=== PATIENT | female | born 1995 | race Caucasian/White ===

== ENCOUNTER 2016-11-18 00:16 | Inpatient (IN) | payer OTHER ==
[2016-11-18] MEDS ORDERED: BRETHINE IVP PRN (01:16)
[2016-11-18] MEDS ORDERED: STADOL IV PRN (01:16)
[2016-11-18] MEDS ORDERED: ZOFRAN IV PRN ×2 (01:16→18:01)
[2016-11-18] MEDS ORDERED: NARCAN 0.4 MG/1 ML IV PRN (01:16)
[2016-11-18] MEDS ORDERED: MINERAL OIL PO PRN (01:16)
[2016-11-18] MEDS ORDERED: SUBLIMAZE IV PRN (01:16)
[2016-11-18] MEDS ORDERED: BRETHINE SUB-Q PRN (01:16)
[2016-11-18] MEDS ORDERED: ePHEDrine SULFATE IV PRN ×2 (01:16→04:38)
[2016-11-18] MEDS ORDERED: XYLOCAINE 2% INFILTRATI ONE (01:16)
[2016-11-18] MEDS ORDERED: PITOCin/NS 20 UNIT/1000ML DRIP 1,000 ML IV SCH ×2 (02:00→18:01)
[2016-11-18] MEDS ORDERED: PITOCin/NS 30 UNIT/500ML 500 ML IV SCH (02:00)
[2016-11-18] MEDS ORDERED: LACTATED RINGERS 1,000 ML ONE (02:00)
[2016-11-18 02:14] LABS: Hematocrit 34.2 % (30.3-42.9); Hemoglobin 11.3 gm/dl (10.1-14.3); Mean Corpuscular HGB Conc 33 % (30-34); Mean Corpuscular Volume 78 fl (79-97); Platelet Count 215 K/mm3 (140-440); Red Blood Count 4.41 M/mm3 (3.65-5.03); Red Cell Distribution Width 16.6 % (13.2-15.2); White Blood Count 12.9 K/mm3 (4.5-11.0)
[2016-11-18 02:19] LABS: Mean Corpuscular Hemoglobin 26 pg (28-32)
[2016-11-18] MEDS: LACTATED RINGERS 1,000 ML IV SCH ×2 (02:19→05:54)
[2016-11-18] MEDS ORDERED: ePHEDrine SULFATE ONE (03:09)
--- NOTE | 2016-11-18 03:18 | History and Physical Report ---
History of Present Illness Date of examination: 11/18/16 Date of admission: 11/18/16 01:10 Past History Past Medical History: no pertinent history, other (hx of depression) Past Surgical History: no surgical history Family/Genetic History: hypertension - Obstetrical History Expected Date of Delivery: 11/22/16 Actual Gestation: 39 Week(s) 3 Day(s) : 1 Spontaneous Abortions: 0 Medications and Allergies Allergies Allergy/AdvReac Type Severity Reaction Status Date / Time No Known Allergies Allergy Verified 11/18/16 00:25 Home Medications Medication Instructions Recorded Confirmed Last Taken Type No Known Home Medications [No 11/18/16 11/18/16 Unknown History Reported Home Medications] Active Meds: Active Medications Butorphanol Tartrate (Stadol) 2 mg IV Q2H PRN PRN Reason: Pain , Severe (7-10) Fentanyl (Sublimaze) 100 mcg IV Q2H PRN PRN Reason: Labor Pain Lactated Ringer's (Lactated Ringers) 1,000 mls @ 125 mls/hr IV DIRECT ANTONIO Last Admin: 11/18/16 02:19 Dose: 125 mls/hr Oxytocin/Sodium Chloride (Pitocin/Ns 20 Unit/1000ml Drip) 1,000 mls @ 125 mls/ hr IV DIRECT ANTONIO Oxytocin/Sodium Chloride (Pitocin/Ns 30 Unit/500ml) 500 mls @ 2 mls/hr IV TITR ANTONIO PRN Reason: Protocol Last Admin: 11/18/16 02:40 Dose: 2 mls/hr Mineral Oil (Mineral Oil) 30 ml PO QHS PRN PRN Reason: Constipation Naloxone HCl (Narcan 0.4 Mg/1 Ml) 0.1 mg IV Q2MIN PRN PRN Reason: Res Rate </= 8 or 02 SAT < 92% Ondansetron HCl (Zofran) 4 mg IV Q8H PRN PRN Reason: Nausea And Vomiting Review of Systems All systems: negative Gastrointestinal: abdominal pain - Vital Signs Vital signs: Vital Signs Temp Pulse Resp BP Pulse Ox 98.4 F 78 18 117/75 99 11/18/16 00:34 11/18/16 00:34 11/18/16 00:34 11/18/16 00:34 11/18/16 00:34 Temp Pulse Resp BP Pulse Ox 98.9 F 85 18 118/68 98 11/18/16 02:04 11/18/16 02:44 11/18/16 02:04 11/18/16 02:44 11/18/16 01:24 - Physical Exam Breasts: Positive: deferred Cardiovascular: Regular rate, Normal S1, Normal S2 Abdomen: Positive: normal appearance, soft, normal bowel sounds. Negative: distention, tenderness Vulva: both: normal Vagina: Positive: normal moisture. Negative: discharge Cervix: Negative: lesion, discharge Uterus: Positive: normal size, normal contour Adnexa: both: normal Anus/Rectum: Positive: normal perianal skin, heme negative. Negative: rectal mass, hemorrhoids Extremities: Deep Tendon Reflex Grade: Normal +2 - Obstetrical FHR: category 1 Uterine Contraction Monitor Mode: External Cervical Dilatation: 3.5 Cervical Effacement Percentage: 100 station: -1 Uterine Contraction Pattern: Irregular Uterine Tone Measurement Phase: Resting Uterine Contraction Intensity: Mild Results Result Diagrams: 11/18/16 01:50 Abnormal lab results 11/18/16 Range/Units 01:50 WBC 12.9 H (4.5-11.0) K/mm3 MCV 78 L (79-97) fl MCH 26 L (28-32) pg RDW 16.6 H (13.2-15.2) % All other labs normal. Assessment and Plan iup at term, active labor plan-anticipate
--- NOTE | 2016-11-18 04:38 | Anesthesia Consultation ---
Anesthesia Consult and Med Hx Date of service: 11/18/16 - Airway Anesthetic Teeth Evaluation: Good ROM Head & Neck: Adequate Mental/Hyoid Distance: Adequate Mallampati Class: Class II - Pulmonary Exam CTA: Yes - Cardiac Exam Cardiac Exam: RRR - Pre-Operative Health Status ASA Pre-Surgery Classification: ASA2, Emergency Proposed Anesthetic Plan: Epidural, Spinal - Pulmonary Hx Asthma: No COPD: No Hx Pneumonia: No - Cardiovascular System Hx Hypertension: No - Central Nervous System Hx Seizures: No Hx Psychiatric Problems: Yes (DEPRESSION YRS AGO) - Endocrine Hx Renal Disease: No Hx End Stage Renal Disease: No Hx Hypothyroidism: No Hx Hyperthyroidism: No - Hematic Hx Anemia: No Hx Sickle Cell Disease: No
[2016-11-18] MEDS ORDERED: fentaNYL-BUPIV 2 MCG/ML-0.125% 100 ML EPIDURAL SCH (05:00)
--- NOTE | 2016-11-18 07:59 | Procedure Note ---
OB Delivery Note - Delivery Date of Delivery: 11/18/16 Surgeon: SHARLA QUINN Estimated blood loss: 200cc - Vaginal Delivery presentation: vertex Delivery position: OA Intrapartum events: none Delivery induction: none Delivery augmentation: pitocin Delivery monitor: external FHT, external uterine Route of delivery: Delivery placenta: spontaneous Delivery cord: 3 umbilical vessels Episiotomy: none Delivery laceration: other (periuretheral. red rubber placedmin urethra prior to repair) Delivery repair: vicryl Anesthesia: none - A at 1 minute: 8 at 5 minutes: 9 Infant Gender: Female (wt 6-5, infant and mother tolerated the procedure well.)
[2016-11-18] MEDS ORDERED: TYLENOL PO PRN (18:01)
[2016-11-18] MEDS ORDERED: LANSINOH TP PRN (18:01)
[2016-11-18] MEDS ORDERED: DULCOLAX PR PRN (18:01)
[2016-11-18] MEDS ORDERED: TUCKS PAD TP PRN (18:01)
[2016-11-18] MEDS ORDERED: SODIUM CHLORIDE FLUSH SYRINGE 10 ML IV SCH (18:01)
[2016-11-18] MEDS ORDERED: BENADRYL PO PRN (18:01)
[2016-11-18] MEDS ORDERED: PERCOCET 5/325 PO PRN (18:01)
[2016-11-18] MEDS ORDERED: PHENERGAN PR PRN (18:01)
[2016-11-18] MEDS ORDERED: PHENERGAN PO PRN (18:01)
[2016-11-18] MEDS ORDERED: MILK OF MAGNESIA PO PRN (18:01)
[2016-11-18] MEDS ORDERED: DERMOPLAST TP PRN (18:01)
[2016-11-18] MEDS: MOTRIN PO SCH ×2 (18:39→23:09)
[2016-11-18 23:43] LABS: Hematocrit 25.4 % (30.3-42.9); Hemoglobin 8.4 gm/dl (10.1-14.3)
[2016-11-19] MEDS: MOTRIN PO SCH ×2 (05:10→11:28)
--- NOTE | 2016-11-19 05:11 | Progress Note ---
Assessment and Plan ppd 1 s/p . plan d/c home tomorrow pm if stable Subjective - Subjective Date of service: 11/19/16 Principal diagnosis: ppd 1 s/p Interval history: routine pp care Patient reports: appetite normal, voiding normally, pain well controlled [place]: doing well Objective - Vital Signs Latest vital signs: Vital Signs Temp Pulse Pulse Resp BP BP Pulse Ox 11/19/16 00:00 98.4 F 98 H 20 102/56 11/18/16 16:01 98.6 F 98 H 20 102/61 11/18/16 12:40 97.9 F 86 20 100/50 11/18/16 08:48 99.0 F 112 H 20 102/58 11/18/16 08:16 111 H 113/55 11/18/16 08:01 111 H 96/52 11/18/16 07:46 125 H 107/55 11/18/16 07:31 117 H 104/55 11/18/16 07:16 97.1 F L 11/18/16 07:03 160 H 96 11/18/16 07:01 133 H 117/57 11/18/16 06:58 173 H 95 11/18/16 06:57 146 H 93 11/18/16 06:53 149 H 99 11/18/16 06:48 139 H 99 11/18/16 06:47 129 H 118/96 11/18/16 06:43 115 H 97 11/18/16 06:38 116 H 98 11/18/16 06:33 126 H 98 11/18/16 06:32 131 H 119/61 11/18/16 06:28 81 98 11/18/16 06:23 78 98 11/18/16 06:18 82 98 11/18/16 06:16 80 100/54 11/18/16 06:13 79 97 11/18/16 06:08 74 97 11/18/16 06:03 72 98 11/18/16 06:01 74 99/56 11/18/16 05:58 94 H 98 11/18/16 05:53 103 H 96 11/18/16 05:49 90 94 11/18/16 05:48 102 H 94 11/18/16 05:47 86 104/56 11/18/16 05:43 88 94 11/18/16 05:38 85 94 11/18/16 05:36 87 94 11/18/16 05:33 92 H 95 11/18/16 05:31 88 108/57 94 11/18/16 05:28 89 94 11/18/16 05:24 94 H 94 11/18/16 05:23 98 H 94 11/18/16 05:19 98 H 94 11/18/16 05:18 98 H 95 11/18/16 05:16 94 H 115/61 11/18/16 05:13 100 H 97 11/18/16 05:12 95 H 94 11/18/16 05:11 18 113/67 Intake and Output 11/18/16 11/18/16 11/19/16 14:59 22:59 06:59 Intake Total 480 480 Output Total 1250 Balance -770 480 Intake: Oral 480 480 Output: Urine 1250 Void 1250 Other: Total, Intake Amount 240 240 Total, Output Amount 800 # Voids Void 1 Estimated Blood Loss 200 - Exam Breasts: Present: deferred Cardiovascular: Present: Regular rate, Normal S1, Normal S2 Lungs: Present: Clear to auscultation Abdomen: Present: normal appearance, soft Vulva: both: normal Uterus: Present: normal, firm Extremities: Present: normal Deep Tendon Reflex Grade: Normal +2 Incision: Present: normal, dry, intact - Labs Labs: Abnormal lab results 11/18/16 Range/Units 23:30 Hgb 8.4 L (10.1-14.3) gm/dl Hct 25.4 L D (30.3-42.9) %
--- NOTE | 2016-11-19 05:14 | Discharge Summary ---
Providers - Providers Date of Admission: 11/18/16 01:10 Date of discharge: 11/19/16 Attending physician: SHARLA QUINN Primary care physician: SHARLA QUINN Hospitalization Reason for admission: active labor Delivery: Procedure details: s/p Episiotomy: none Laceration: 2nd degree (periurethral) Other procedures: none complications: none Discharge diagnosis: IUP at term delivered [place] baby: female Hospital course: routine pp course Condition at discharge: Good Disposition: DISCHARGED TO HOME OR SELFCARE - Discharge Diagnoses (1) (normal spontaneous vaginal delivery) Status: Acute (2) Anemia Status: Acute Comment: secondary to the blood loss at delivery Plan - Discharge Medications Prescriptions: Ferrous Sulfate [Feosol 325 MG tab] 325 mg PO BID #60 tablet Ibuprofen [Motrin 800 MG tab] 800 mg PO Q8HR PRN #30 tablet PRN Reason: Pain oxyCODONE /ACETAMINOPHEN [Percocet 5/325] 1 tab PO Q6HR PRN #30 tablet PRN Reason: Pain - Provider Discharge Summary Activity: routine, no sex for 6 weeks, no heavy lifting 4 weeks, no strenuous exercise Diet: routine Instructions: routine Additional instructions: [] Smoking cessation referral if applicable(refer to patient education folder for contact #) [] Refer to [facility] Booklet Call your doctor immediately for: * Fever > 100.5 * Heavy vaginal bleeding ( >1 pad per hour) * Severe persistent headache * Shortness of breath * Reddened, hot, painful area to leg or breast * Drainage or odor from incision. * Keep incision clean and dry at all times and follow doctor's instructions regarding bathing/showering - Follow up plan Follow up: SHARLA QUINN MD [Primary Care Provider] - 6 Weeks
[2016-11-19] MEDS ORDERED: BOOSTRIX IM ONE (06:00)
[2016-11-19] MEDS ORDERED: FLUARIX QUAD 2016-2017(36 MOS+) IM ONE (12:00)
--- NOTE | 2016-11-19 14:12 | Progress Note ---
Subjective Date of service: 11/19/16 Principal diagnosis: ppd 1 s/p Interval history: 1st day after normal vaginal delivery Patient is in the bed, comfortable. Ambulated normally. Pain is well controlled with pain meds. No residual neurological deficit. No anesthesia complications Objective - Constitutional Vitals: Vital Signs - 12hr 11/19/16 09:25 Temperature 98.8 F Pulse Rate [ 82 Right Radial] Respiratory 18 Rate Blood Pressure 112/48 [Right Arm] - Labs CBC & Chem 7: 11/18/16 23:30 Labs: Abnormal lab results 11/18/16 Range/Units 23:30 Hgb 8.4 L (10.1-14.3) gm/dl Hct 25.4 L D (30.3-42.9) %
[2016-11-19 14:47] VITALS: BP 114/56
== END 2016-11-19 15:20 | disposition home or self-care (01) | DRG 775 ==
LOC: TRG 00:16 → LD 01:10 → TRG 01:10 → OB 08:34
PROVIDERS: ADMIT Specialist; ATTEND Specialist
PROC: 10E0XZZ Delivery of Products of Conception, External Approach (ICD-10-PCS; principal; 2016-11-18)
PROC: 0UQMXZZ Repair Vulva, External Approach (ICD-10-PCS; 2016-11-18)
DX: O99.344 Other mental disorders complicating childbirth (principal); O71.5 Other obstetric injury to pelvic organs; D62 Acute posthemorrhagic anemia; Z3A.39 39 weeks gestation of pregnancy; Z37.0 Single live birth; F32.9 Major depressive disorder, single episode, unspecified; O90.81 Anemia of the puerperium
CPT/HCPCS: 36415; 85014; 85018; 85027; 86850; 86900; 86901; 90471; 90686; 99211; A6250; G0463; J0595; J2590; J7120

== ENCOUNTER 2022-01-09 00:24 | Inpatient (IN) | payer SELFPAY ==
--- NOTE | 2022-01-09 02:17 | History and Physical Report ---
History of Present Illness Date of examination: 01/09/22 Date of admission: 01/09/2022 Chief complaint: 26 y/o at 37-6/7 weeks presents to OBT reporting regular and painful CTX q 2 minutes. No VB or LOF at home. Good FM. SVE= 4/60%/-3. She is admitted to L&D in early labor. While waiting to be transferred, cervix changed to 5-6 cm dilated and SROM occurred. Past History Past Medical History: no pertinent history Past Surgical History: no surgical history Family/Genetic History: none Social history: no significant social history - Obstetrical History Expected Date of Delivery: 01/24/22 Actual Gestation: 37 Week(s) 6 Day(s) : 2 Para: 1 Hx # Term Pregnancies: 1 Medications and Allergies Allergies Allergy/AdvReac Type Severity Reaction Status Date / Time No Known Allergies Allergy Verified 11/18/16 00:25 Home Medications Medication Instructions Recorded Confirmed Last Taken Type Ferrous Sulfate [Feosol 325 MG tab] 325 mg PO BID #60 tablet 11/18/16 Unknown Rx Ibuprofen [Motrin 800 MG tab] 800 mg PO Q8HR PRN #30 tablet 11/18/16 Unknown Rx oxyCODONE /ACETAMINOPHEN [Percocet 1 tab PO Q6HR PRN #30 tablet 11/18/16 U nknown Rx 5/325] Review of Systems All systems: negative - Vital Signs Vital signs: Vital Signs Pulse Pulse Ox 98 H 100 01/09/22 00:53 01/09/22 00:53 Temp Pulse Resp BP Pulse Ox 98.3 F 91 H 18 112/73 98 01/09/22 00:55 01/09/22 02:03 01/09/22 00:55 01/09/22 00:55 01/09/22 02:03 - Physical Exam Breasts: Positive: normal Cardiovascular: Regular rate Lungs: Positive: Normal air movement Abdomen: Positive: normal appearance Genitourinary (Female): Positive: normal external genitalia, normal perenium Vulva: both: normal Vagina: Positive: normal moisture Uterus: Positive: enlarged Adnexa: both: normal Anus/Rectum: Positive: normal perianal skin Extremities: Positive: normal Deep Tendon Reflex Grade: Normal +2 - Obstetrical FHR: category 1 Uterine Contraction Monitor Mode: External Cervical Dilatation: 4 Cervical Effacement Percentage: 60 station: -3 Uterine Contraction Frequency (min): 2 Uterine Contraction Pattern: Regular Results All other labs normal. Ultrasound: pending Assessment and Plan - Patient Problems (1) 37 weeks gestation of Current Visit: Yes Status: Acute Plan to address problem: care is up-to-date. She is GBS (-). (2) Active labor at term Current Visit: Yes Status: Acute Plan to address problem: Admit to L&D. Epidural to be placed by anesthesia team. Expectant management for now.
[2022-01-09] MEDS ORDERED: ePHEDrine SULFATE 50 MG/1 ML INJ IV PRN ×2 (02:30→04:00)
[2022-01-09] MEDS ORDERED: ACETAMINOPHEN 325 MG TAB PO PRN ×2 (02:30→08:00)
[2022-01-09] MEDS ORDERED: METHYLERGONOVINE MALEATE 0.2 MG/ML VIAL IM PRN (02:30)
[2022-01-09] MEDS ORDERED: fentaNYL 100 MCG/2 ML INJ IV PRN (02:30)
[2022-01-09] MEDS ORDERED: TERBUTALINE 1 MG/1 ML INJ SUB-Q PRN (02:30)
[2022-01-09] MEDS ORDERED: BUTORPHANOL 2 MG/1 ML INJ IV PRN (02:30)
[2022-01-09] MEDS ORDERED: CARBOPROST TROMETHAMINE 250 MCG/1 ML INJ IM PRN (02:30)
[2022-01-09] MEDS: LACTATED RINGERS 1,000 ML IV SCH ×3 (02:42→03:58)
[2022-01-09] MEDS ORDERED: OXYTOCIN DRIP 30 UNITS/500 ML BAG IV SCH (03:00)
[2022-01-09 03:12] LABS: Hemoglobin 9.9 gm/dl (10.1-14.3); Mean Corpuscular HGB Conc 34 % (30-34); Mean Corpuscular Volume 79 fl (79-97); Platelet Count 202 K/mm3 (140-440); Red Blood Count 3.68 M/mm3 (3.65-5.03); Red Cell Distribution Width 17.4 % (13.2-15.2)
--- NOTE | 2022-01-09 03:40 | Anesthesia Consultation ---
Anesthesia Consult and Med Hx Date of service: 01/09/22 - Airway Anesthetic Teeth Evaluation: Good ROM Head & Neck: Adequate Mental/Hyoid Distance: Adequate Mallampati Class: Class II Intubation Access Assessment: Probably Good - Pulmonary Exam CTA: Yes - Cardiac Exam Cardiac Exam: RRR - Pre-Operative Health Status ASA Pre-Surgery Classification: ASA2 Proposed Anesthetic Plan: Epidural - Pulmonary Hx Asthma: No COPD: No Hx Pneumonia: No - Cardiovascular System Hx Hypertension: No - Central Nervous System Hx Seizures: No Hx Psychiatric Problems: No - Endocrine Hx Renal Disease: No Hx End Stage Renal Disease: No Hx Hypothyroidism: No Hx Hyperthyroidism: No - Hematic Hx Anemia: Yes Hx Sickle Cell Disease: No - Other Systems Hx Alcohol Use: No
--- NOTE | 2022-01-09 03:42 | Progress Note ---
Labor Epidural - Labor Epidural Start Time: 03:28 Stop Time: 03:32 Performed by:: VERITO YODER Procedure: Patient is requesting epidural for labor pain. H&P, and labs reviewed. Procedure explained, questions answered, consent obtained. Patient in sitting position with blood pressure cuff and pulse ox on and working. Timeout performed immediately before start of procedure. Sterile Chloraprep prep/drape. 3 mL 1% lidocaine skin wheal at L[3]-L[4]. 17-gauge tuohy epidural needle advanced to [id number] with saline at [7] cm. 25-gauge spinal needle advanced until clear, free-flowing CSF. Intrathecal dexmedetomidine 10 mcg administered and needle removed. Epidural catheter advanced to [12] cm, negative aspiration for blood and csf, negative test dose 3 ml 1.5% lidocaine with epinephrine. Sterile sponge and tegaderm applied, followed by tape reinforcement. Patient tolerated procedure well.
[2022-01-09] MEDS ORDERED: fentaNYL-BUPIV 2 MCG/ML-0.125% 200 MCG/100 ML BAG EPIDURAL SCH (04:00)
[2022-01-09] MEDS ORDERED: NALOXONE 2 MG/2 ML INJ IV PRN (04:00)
--- NOTE | 2022-01-09 06:11 | Ultrasound Report ---
US OB follow up INDICATION / CLINICAL INFORMATION: GRANT, EFW, POSITION, PLACENTA LOCATION COMPARISON: None available. TECHNIQUE: Using a transcutaneous probe, multiple grayscale, color Doppler, and spectral Doppler imag es of the uterus and fetus were captured and stored. FINDINGS: Based on last menstrual period of 04/19/2021, the clinical estimation of gestational age is 37 weeks 6 days. Single cephalic fetus with heart rate of 160 bpm is demonstrated. The head has engaged the vagi nal canal. There is near-complete oligohydramnios. The placenta lies within the posterior right lateral uterus and appears to represent grade 2 placenta . Biparietal Diameter = 6.6 cm = 26, 4 weeks, days Head Circumference = 25.2 cm = 27, 3 weeks, days Abdominal Circumference = 32.9 cm = 36, 6 weeks, days Femur Length = 6.6 cm = 33, 5 weeks, days Average Ultrasound Age (AUA) = 31, 1 weeks, days Estimated weight = 2269 g. IMPRESSION: 1. Single cephalic fetus heart rate 160 bpm and composite estimated gestational age of 31 weeks 1 day . head was noted to lie within the vaginal canal. Signer Name: Santos Bazan II, MD Signed: 01/09/2022 6:06 AM Workstation Name: [id number]
--- NOTE | 2022-01-09 06:35 | Procedure Note ---
OB Delivery Note - Delivery Date of Delivery: 01/09/22 Surgeon: ROSITA WINSTON Estimated blood loss: 300cc - Vaginal Delivery presentation: vertex Delivery position: OA Delivery induction: none Delivery monitor: external FHT, external uterine Route of delivery: Delivery placenta: manual Delivery cord: 3 umbilical vessels Episiotomy: none Delivery laceration: 1st degree, other (1st degree, other (1st degree penineal, infra-clitoral, and left valeria-urethral lacerations)) Delivery repair: vicryl Anesthesia: epidural - Infant A at 1 minute: 8 at 5 minutes: 9
[2022-01-09] MEDS ORDERED: ONDANSETRON 4 MG/2 ML INJ IV PRN (07:30)
[2022-01-09] MEDS ORDERED: MAGNESIUM HYDROXIDE (MOM) ORAL LIQD UDC PO PRN (07:30)
[2022-01-09 07:43] LABS: Hematocrit 28.4 % (30.3-42.9); Hemoglobin 9.4 gm/dl (10.1-14.3); Mean Corpuscular HGB Conc 33 % (30-34); Mean Corpuscular Volume 80 fl (79-97); Platelet Count 166 K/mm3 (140-440); Red Blood Count 3.56 M/mm3 (3.65-5.03); Red Cell Distribution Width 17.6 % (13.2-15.2)
[2022-01-09] MEDS ORDERED: WITCH HAZEL/ GLYCERIN PAD TP PRN (08:00)
[2022-01-09] MEDS ORDERED: LANOLIN/ZINC/DIMETHICONE (LANSINOH) 7 GM TP PRN (08:00)
[2022-01-09] MEDS ORDERED: diphenhydrAMINE 25 MG CAP PO PRN (08:00)
[2022-01-09] MEDS ORDERED: HYDROcodone/ACETAMINOPHEN 5-325 MG TAB PO PRN (08:00)
[2022-01-09] MEDS ORDERED: BENZOCAINE/MENTHOL 20/0.5% TOP SPRAY 56 GM TP PRN (08:00)
[2022-01-09] MEDS: IBUPROFEN 800 MG TAB PO SCH (10:33)
[2022-01-09] MEDS: PRENATAL VIT27-FE FUMARATE-FOLIC ACID VIT TAB PO SCH (10:33)
[2022-01-09] MEDS: DOCUSATE SODIUM 100 MG CAP PO SCH (10:33)
--- NOTE | 2022-01-09 15:55 | Post Anesthesia Evaluation ---
- Post Anesthesia Evaluation Patient Participated: Yes Airway Patent: Yes Stable Respiratory Function: Yes Nausea/Vomiting: No Temp > 96.8F: Yes Pain Manageable: Yes Adequeate Hydration: Yes Anesthesia Complications: No Block Receding Appropriately: Yes
[2022-01-09 19:04] LABS: Hematocrit 25.5 % (30.3-42.9); Hemoglobin 8.1 gm/dl (10.1-14.3)
[2022-01-10] MEDS: IBUPROFEN 800 MG TAB PO SCH ×3 (00:40→18:00)
[2022-01-10] MEDS ORDERED: IRON DEXTRAN COMPLEX 100 MG/2 ML INJ IM SCH (10:00)
[2022-01-10] MEDS: DOCUSATE SODIUM 100 MG CAP PO SCH (10:50)
[2022-01-10] MEDS: PRENATAL VIT27-FE FUMARATE-FOLIC ACID VIT TAB PO SCH (10:50)
--- NOTE | 2022-01-10 12:37 | Progress Note ---
Assessment and Plan A: S/P Asymptomatic anemia P: Continue routine pp orders InFed IM X 1 Fe as prescribed D/C home tomm if stable Subjective - Subjective Date of service: 01/10/22 Principal diagnosis: s/p Patient reports: appetite normal, voiding normally, pain well controlled, ambulating normally [place]: doing well, bottle feeding Objective - Vital Signs Latest vital signs: Vital Signs Temp Pulse Resp BP BP Pulse Ox Pulse Ox 01/10/22 08:54 98.9 F 93 H 18 97/48 98 01/10/22 08:15 100 01/10/22 00:15 98.2 F 73 18 102/56 100 01/09/22 20:10 100 01/09/22 16:10 98.2 F 83 18 100/47 99 Intake and Output 01/09/22 01/10/22 01/10/22 22:59 06:59 14:59 Intake Total 680 Balance 680 Intake: Oral 680 Other: Total, Intake Amount 240 # Voids Void 1 1 - Exam Breasts: Present: normal Abdomen: Present: normal appearance, soft, normal bowel sounds Vulva: both: normal Uterus: Present: normal, firm, fundal height below umbilicus Extremities: Present: normal Incision: Present: normal, intact - Labs Labs: Abnormal lab results 01/09/22 Range/Units 18:05 Hgb 8.1 L (10.1-14.3) gm/dl Hct 25.5 L (30.3-42.9) %
--- NOTE | 2022-01-11 09:10 | Progress Note ---
Assessment and Plan A: day 2 S/P . Anemia. P: Repeat CBC today. Continue iron supplementation. Plan discharge home later today if CBC OK. Subjective - Subjective Date of service: 01/11/22 Principal diagnosis: day 2 S/P Patient reports: appetite normal, voiding normally, pain well controlled, flatus, ambulating normally, no dizzy ambulation, no nauseated [place]: doing well Objective - Vital Signs Latest vital signs: Vital Signs Temp Pulse Resp BP Pulse Ox Pulse Ox 01/11/22 08:00 100 01/11/22 07:41 98.2 F 97 H 18 104/69 97 01/11/22 00:26 98.2 F 90 20 101/61 95 01/10/22 21:59 113/59 01/10/22 20:21 100 01/10/22 18:10 98.1 F 96 H 18 99/49 98 Intake and Output 01/10/22 01/11/22 01/11/22 23:59 07:59 15:59 Intake Total 480 Balance 480 Intake: Oral 480 Other: Total, Intake Amount 240 # Voids Void 4 1 - Exam Cardiovascular: Present: Regular rate Lungs: Present: Clear to auscultation Abdomen: Present: normal appearance, soft. Absent: distention, tenderness, guarding, rigidity Uterus: Present: normal, firm, fundal height below umbilicus (fundus firm and midline at 2 FB below umbilicus). Absent: bogginess, tenderness Extremities: Absent: tenderness
[2022-01-11] MEDS ORDERED: FERROUS SULFATE 325 MG TAB PO SCH (10:00)
[2022-01-11 10:33] LABS: Basophils # (Auto) 0.1 K/mm3 (0.0-0.1); Basophils % (Auto) 0.7 % (0.0-1.8); Eosinophils # (Auto) 0.1 K/mm3 (0.0-0.4); Eosinophils % (Auto) 1.2 % (0.0-4.3); Hematocrit 28.5 % (30.3-42.9); Hemoglobin 9.3 gm/dl (10.1-14.3); Lymphocytes # (Auto) 2.8 K/mm3 (1.2-5.4); Lymphocytes % (Auto) 26.5 % (13.4-35.0); Mean Corpuscular HGB Conc 33 % (30-34); Mean Corpuscular Volume 81 fl (79-97); Monocytes # (Auto) 0.6 K/mm3 (0.0-0.8); Monocytes % (Auto) 5.9 % (0.0-7.3); Platelet Count 217 K/mm3 (140-440); Red Blood Count 3.54 M/mm3 (3.65-5.03); Red Cell Distribution Width 17.8 % (13.2-15.2)
[2022-01-11 12:13] LABS: Bilirubin,Urine NEG (Negative); Blood,Urine LG (Negative); Color,Urine Yellow (Yellow)
[2022-01-11 12:26] LABS: RBC,Urine > 182.0 /HPF (0.0-6.0)
[2022-01-11 12:27] LABS: Bacteria,Urine FEW /HPF (Negative)
--- NOTE | 2022-01-11 13:26 | Event Note ---
Date: 01/11/22 Urinalysis has resulted but nurse states was not a cath specimen or a clean catch. Urinalysis re-ordered and asked nurse to collect a cath specimen.
[2022-01-11 14:50] LABS: Bilirubin,Urine NEG (Negative); Blood,Urine NEG (Negative); Color,Urine Yellow (Yellow); Mucus,Urine FEW /HPF; Protein,Urine <15 mg/dL mg/dL (Negative)
--- NOTE | 2022-01-11 16:23 | Event Note ---
Date: 01/11/22 Patient requests discharge home today. Cath urinalysis negative. Discussed with patient discharge instructions and warning signs. Advised patient to avoid intercourse, lifting, housework. Advised patient to continue taking her vitamin and iron supplements at home. Advised patient to follow up at [facility] in 6 weeks. Patient voiced understanding of all discharge instructions.
--- NOTE | 2022-01-11 16:26 | Discharge Summary ---
Providers - Providers Date of Admission: 01/09/22 02:17 Date of discharge: 01/11/22 Attending physician: DEONNA RO Primary care physician: DEONNA RO Hospitalization Reason for admission: active labor Delivery: Laceration: 1st degree Other procedures: none complications: none Discharge diagnosis: IUP at term delivered baby: female Pertinent studies: Labs Hospital course: Stable hospital course Condition at discharge: Good Disposition: 01 HOME / SELF CARE / HOMELESS - Discharge Diagnoses (1) Term delivered Status: Acute (2) Anemia Status: Acute Comment: secondary to the blood loss at delivery Plan - Provider Discharge Summary Activity: routine, no sex for 6 weeks, no heavy lifting 4 weeks, no strenuous exercise Diet: routine Instructions: routine Additional instructions: Continue taking your vitamin and iron supplements at home. Follow up at [facility] clinic in 6 weeks. Call your doctor immediately for: * Fever > 100.5 * Heavy vaginal bleeding ( >1 pad per hour) * Severe persistent headache * Shortness of breath * Reddened, hot, painful area to leg or breast - Follow up plan Follow up: [facility] [Referring] - 6 Weeks Forms: [facility] Discharge Summary
[2022-01-11 17:10] VITALS: BP 101/58
[2022-01-11] MEDS: PRENATAL VIT27-FE FUMARATE-FOLIC ACID VIT TAB PO SCH (17:23)
[2022-01-11] MEDS: DOCUSATE SODIUM 100 MG CAP PO SCH ×2 (17:23→17:26)
== END 2022-01-11 18:00 | disposition home or self-care (01) | DRG 807 ==
LOC: TRG 00:24 → APU 00:27 → LD 02:17 → TRG 02:17 → OB 08:13
PROVIDERS: ADMIT Obstetrics & Gynecology; ATTEND Obstetrics & Gynecology
PROC: 10E0XZZ Delivery of Products of Conception, External Approach (ICD-10-PCS; principal; 2022-01-09)
PROC: 3E0R3BZ Introduction of Anesthetic Agent into Spinal Canal, Percutaneous Approach (ICD-10-PCS; 2022-01-09)
PROC: 00HU33Z Insertion of Infusion Device into Spinal Canal, Percutaneous Approach (ICD-10-PCS; 2022-01-09)
PROC: 0HQ9XZZ Repair Perineum Skin, External Approach (ICD-10-PCS; 2022-01-09)
DX: O70.0 First degree perineal laceration during delivery (principal); Z37.0 Single live birth; Z3A.37 37 weeks gestation of pregnancy; Z20.822 Contact with and (suspected) exposure to COVID-19
CPT/HCPCS: 36415; 76816; 81001; 85014; 85018; 85025; 85027; 86850; 86900; 86901; 87086; G0378; J3490; J1750; J2590; J7120; U0003